=== PATIENT | female | born 2005 | race Two or more races ===

== ENCOUNTER 2024-12-16 08:07 | Emergency (ER) | payer MEDICAID, OTHER ==
[~2024-12-16] VITALS: Ht 160 cm; Wt 70.0 kg
--- NOTE | 2024-12-16 08:23 | ED.PDOC ---
History of Present Illness HPI Comments A 19YEAR OLD FEMALE PRESENTS TO THE ED WITH COMPLAINT OF MEDICAL CLEARANCE. PATIENT STATES THAT SHE IS CURRENTLY 17 WEEKS , . PATIENT HAS NOT HAD ANY CARE, BLOOD TEST AND US DONE SINCE FINDING OUT THAT SHE WAS . AT THIS TIME, SHE C/P PELVIC CRAMPS AND REQUESTS OB US. PATIENT STATES THAT [facility] AND THE STAFF THERE STATES THAT SHE NEEDED TO BE MEDICALLY CLEARED TO BE ACCEPTED. PATIENT DENIES FEVER, CHILLS, SHORTNESS OF BREATH, CHEST PAIN, ABDOMINAL PAIN, NAUSEA, VOMITING, HEADACHE, OR OTHER COMPLAINTS. NO OTHER SYMPTOMS OR MODIFYING FACTORS AT THIS TIME. PATIENT IS ALERT, ORIENTED X 4, AND HAS STEADY GAIT. Time Seen by MD: 08:11 Reviewed Notes: Nurses Notes, Medications, Allergies Allergies: Coded Allergies: NO KNOWN ALLERGIES (Unverified , 12/16/24) Home Meds Active Scripts Nitrofurantoin Monohydrate Mac (Macrobid) 100 Mg Cap, 100 MG PO BID, #14 CAP Prov:BRICE HEBERT 12/16/24 Information Source: Patient Mode of Arrival: Ambulatory Severity: Mild, Moderate Timing: Days Duration: Since onset, Days Prehospital treatment: None Medication Refill: For: Other ( STATE AND MEDICAL CLEARANCE. ) Past Medical History PAST MEDICAL HISTORY: Anxiety, Depression Surgical History: Denies all surgeries RENEWAL SPECIALIST History: Denies all RENEWAL SPECIALIST Hx Family History Family History: Reviewed,noncontributory to illness Social History Smoker: Non-Smoker Alcohol: Denies ETOH Use Drugs: Denies Drug Use Lives In: Home Constitutional: denies: chills, diaphoresis, fatigue, fever, malaise, sweats, weakness, others EENTM: denies: blurred vision, double vision, ear bleeding, ear discharge, ear drainage, ear pain, ear ringing, eye pain, eye redness, hearing loss, mouth davida n, mouth swelling, nasal discharge, nose bleeding, nose congestion, nose pain, photophobia, tearing, throat pain, throat swelling, voice changes, others Respiratory: denies: cough, hemoptysis, orthopnea, SOB at rest, shortness of breath, SOB with excertion, stridor, wheezing, others Cardiovascular: denies: chest pain, dizzy spells, diaphoresis, Dyspnea on exertion, edema, irregular heart beat, left arm pain, lightheadedness, palpitations, PND, syncope, others Gastrointestinal: denies: abdomen distended, abdominal pain, blood streaked bowels, constipated, diarrhea, dysphagia, difficulty swallowing, hematemesis, melena, nausea, poor appetite, poor fluid intake, rectal bleeding, rectal pain, vomiting, others Genitourinary: reports: pain (PELVIC ), ; denies: abnormal vagina bleeding, burning, dyspareunia, dysuria, flank pain, frequency, hematuria, incontinence, vagina discharge, urgency, others Neurological: denies: dizziness, fainting, headache, left sided numbness, left sided weakness, numbness, paresthesia, pre-existing deficit, right sided numbness, right sided weakness, seizure, speech problems, tingling, tremors, weakness, others Musculoskeletal: denies: back pain, gout, joint pain, joint swelling, muscle pain, muscle stiffness, neck pain, others Integumetry: denies: bruises, change in color, change in hair/nails, dryness, laceration, lesions, lumps, rash, wounds, others Allergic/Immunocompromised: denies: Difficulty Healing, Frequent Infections, Hives, Itching, others Hematologic/Lymphatic: denies: anemia, blood clots, easy bleeding, easy bruising, swollen glands, others Endocrine: denies: excessive hunger, excessive sweating, excessive thirst, excessive urination, flushing, intolerance to cold, intolerance to heat, unexplained weight gain, unexplained weight loss, others Psychiatric: denies: anxiety, bipolar disorder, depression, hopeless, panic di sorder, schizophrenia, sleepless, suicidal, others All Other Systems: Reviewed and Negative ( PER HPI) Physical Exam General Appearance: No Apparent Distress, Normal HEENT: Normal ENT Inspection, PERRL/EOMI, Pharynx Normal, TMs Normal Neck: Full Range of Motion, Non-Tender, Normal, Normal Inspection Respiratory: Chest Non-Tender, Lungs Clear, No Accessory Muscle Use, No Respiratory Distress, Normal Breath Sounds Cardiovascular: No Edema, No JVD, No Murmur, No Gallop, Normal Peripheral Puls es, Regular Rate/Rhythm Breast Exam: Deferred Gastrointestinal: No Organomegaly, Non Tender, No Pulsatile Mass, Normal Bowel Sounds, Soft Genitalia: Deferred Pelvic: Normal External Exam, Other (MILD TENDERNESS PELVIC, NO GUARDING AND REBOUND TENDERNESS, NO VAGINAL BLEEDING AND BLOOD CLOTS. ) Rectal: Deferred Extremities: No calf tenderness, Normal capillary refill, Normal inspection, Normal range of motion, Non-tender, No pedal edema Musculoskeletal : Apperance: Normal Neurologic: Alert, vice president underwriting II-XII nml as Tested, No Motor Deficits, Normal Affect, Normal Mood, No Sensory Deficits Cerebellar Function: Normal Reflexes: Normal Skin: Dry, Normal Color, Warm Peripheral Pulses: 2+ carotid (R), 2+ carotid (L) Lymphatic: No Adenopathy Was a procedure done? Was a procedure done?: No Differential Dx Considerations may include: STATE, UTI, MEDICAL CLEARANCE X-Ray, Labs, Meds, VS Vital Signs Date Time Temp Pulse Resp B/P (MAP) Pulse Ox O2 Delivery O2 Flow Rate FiO2 12/16/24 10:22 64 18 98 Room Air 12/16/24 10:22 98.1 64 18 124/75 (91) 98 98.1 12/16/24 08:11 97.9 100 16 139/86 (103) 97 97.9 Lab Test 12/16/24 08:17 12/16/24 08:16 Range/Units White Blood Count 7.3 4.4-10.8 10^3/uL Red Blood Count 4.42 4.0-5.20 10^6/uL Hemoglobin 12.4 12.2-16.2 g/dL Hematocrit 36.1 36.0-46.0 % Mean Corpuscular Volume 81.7 80.0-100.0 fL Mean Corpuscular Hemoglobin 28.0 28.0-32.0 pg Mean Corpuscular Hemoglobin Concent 34.3 32.0-36.0 g/dL Red Cell Distribution Width 16.8 H 11.8-14.3 % Platelet Count 266 140-450 10^3/uL Mean Platelet Volume 8.3 6.9-10.8 fL Neutrophils (%) (Auto) 68.2 37.0-80.0 % Lymphocytes (%) (Auto) 19.8 10.0-50.0 % Monocytes (%) (Auto) 10.9 0.0-12.0 % Eosinophils (%) (Auto) 0.6 0.0-7.0 % Basophils (%) (Auto) 0.5 0.0-2.0 % Neutrophils # (Auto) 4.9 1.6-8.6 10 ^3/uL Lymphocytes # (Auto) 1.4 0.4-5.4 10 ^3/uL Monocytes # (Auto) 0.8 0-1.3 10 ^3/uL Eosinophils # (Auto) 0 0-0.8 10 ^3/uL Basophils # (Auto) 0 0-0.2 10 ^3/uL Nucleated Red Blood Cells 0.0 % Sodium Level 138 136-145 mmol/L Potassium Level 3.3 L 3.5-5.1 mmol/L Chloride Level 107 98-107 mmol/L Carbon Dioxide Level 20 20-31 mmol/L Anion Gap 11 5-15 Blood Urea Nitrogen < 5 L 9-23 mg/dL Creatinine 0.54 L 0.550-1.02 mg/dL Glomerular Filtration Rate Calc 134 >90 mL/min BUN/Creatinine Ratio 9.3 L 10.0-20.0 Serum Glucose 89 74-106 mg/dL Calcium Level 9.8 8.7-10.4 mg/dL Beta HCG, Quantitative 8916.2 H 1.5-4.2 mIU/mL Urine Color Yellow Yellow Urine Clarity Cloudy H Clear Urine pH 6.0 5.0-9.0 Urine Specific [place] 1.019 1.001-1.035 Urine Protein Trace H Negative Urine Ketones 1+ H Negative Urine Blood Negative Negative /uL Urine Nitrite Negative Negative Urine Bilirubin Negative Negative Urine Urobilinogen Normal Negative mg/dL Urine Leukocyte Esterase 3+ Negative /uL Urine RBC 11 0 - 4 /hpf Urine Microscopic WBC 68 H 0-5 /HPF Urine Squamous Epithelial Cells Many <5 /hpf Urine Bacteria Mod H None Seen /hpf Urine Mucus Few None Seen Urine Sperm Present None Seen /hpf Urine Glucose Normal Normal mg/dL Urine Test Positive Negative PATIENT: JOSE MILES ACCT: [id number] UNIT: [id number] : 2005 LOC: ER ROOM / BED: / AGE / SEX: 19 / F ADM STATUS: REG ER SERVICE [id number] ORDERING PHYSICIAN: BRICE HEBERT PROCEDURE(s): OBUS - OB ULTRASOUND COMP GTR 14 WKS REASON: PELVIC PAIN, 17 WEEKS ORDER NUMBER(s): [id number], ACCESSION NUMBER(s): [id number] LIMITED OB ULTRASOUND > 14 WKS: HISTORY: PELVIC PAIN, 17 WEEKS TECHNIQUE: Multiple real-time grayscale images of the gravid uterus with duplex Doppler color flow and M-mode spectral analysis. TRANSDUCER: Transabdominal COMPARISON: None FINDINGS: IUP single live fetus at 18 weeks and 1 day based on composite averages of the BPD, head circumference, abdominal circumference and femur length Estimated weight 222 grams heart rate 156 beats per minute CHARLENE is subjectively within normal limits. Deepest pocket measures 4.3 cm Cervix is closed measures 3.2 cm Transverse left Presentation Grade 1, anterior Placenta without previa or abruption. IMPRESSION: IUP single live fetus at 18 weeks and 1 day AUA corresponding to an RODERICK of 05/18/2025 ATED BY: SPIKE DUNHAM MD DICTATED DATE/TIME: 12/16/24 100 SIGNED BY: SPIKE DUNHAM MD SIGNED DATE/TIME: 12/16/24 1001 X-Ray, Labs, Meds, VS Comment EXTERNAL MEDICAL RECORDS: NONE INDEPENDENT HISTORIANS: NONE SOCIAL DETERMINANTS OF HEALTH: NONE LABS ORDERED: CBC, BMP, BETA HCG, URINALYSIS, URINE REVIEWED AND INTERPRETED RESULTS: NONE IMAGING ORDERED: OB ULTRASOUND TREATMENTS ORDERED: NONE PATIENT'S CASE AND RESULTS HAVE BEEN DISCUSSED WITH MD SPRINGER AND THEY AGREE WITH MY PLAN OF CARE. RX: MACROBID 100MG BID I HAVE DISCUSSED IMAGING AND LAB RESULTS WITH THE PATIENT AND HAVE INSTRUCTED THE PATIENT TO FOLLOW UP WITH THEIR PCP IN 1-2 DAYS. THE PATIENT FULLY UNDERSTANDS THEIR RESULTS AND ARE AWARE THEY NEED TO FOLLOW UP WITH THEIR PCP FOR FURTHER EVALUATION IF THEIR SYMPTOMS PERSIST. DUE TO PATIENT BEING HOMELESS, PATIENT IS AWAITING GEOMATICS PROFESSOR CONSULTATION. PATIENT IS MEDICALLY CLEARED FROM A CLINICAL PERSPECTIVE. Time of 1ST Reevaluation: 08:41 Reevaluation 1ST: Improved Time of 2ND Reevaluation: 10:34 Reevaluation 2ND: Improved Patient Education/Counseling: Diagnosis, Treatment Family Education/Counseling: Diagnosis, Treatment SEPSIS Sepsis Screen Physician Orders Ob Ultrasound Comp Gtr 14 Wks (12/16/24 08:37) * Territory Business Manager Consult (12/16/24 ) Vital Signs Date Time Temp Pulse Resp B/P (MAP) Pulse Ox O2 Delivery O2 Flow Rate FiO2 12/16/24 10:22 64 18 98 Room Air 12/16/24 10:22 98.1 64 18 124/75 (91) 98 98.1 12/16/24 08:11 97.9 100 16 139/86 (103) 97 97.9 Laboratory Tests Test 12/16/24 08:17 White Blood Count 7.3 10^3/uL (4.4-10.8) Departure 1 Departure Time of Disposition: 10:21 Impression: Primary Impression: Second trimester Additional Impression: UTI (urinary tract infection) Qualified Codes: N30.00 - Acute cystitis without hematuria Disposition: HOME / SELF CARE / HOMELESS Condition: Stable Additional Instructions: F/U MILLING GENERAL SUPERINTENDENT IN 2 DAYS RECHECK. IF CONDITION BECOME WORSE, RETURN TO ED KRISTINA. e-Prescriptions Nitrofurantoin Monohydrate Mac (Macrobid) 100 Mg Cap 100 MG PO BID, #14 CAP Prov: BRICE HEBERT 12/16/24 Discharged With: Self Critical Care Note Critical Care Time?: No Stability Stability form required: No Heart Score Heart Score: Heart Score Response (Comments) Value History N/A 0 EKG N/A 0 Age N/A 0 Risk Factors N/A 0 Troponin N/A 0 Total 0 I personally scribed for BRICE HEBERT ([email or web address]) on 12/16/24 at 08:23. Electronically submitted by Herrera Barrios ([email or web address]). I personally scribed for BRICE HEBERT ([email or web address]) on 12/16/24 at 10:07. Electronically submitted by Herrera Barrios ([email or web address]). I personally scribed for BRICE HEBERT ([email or web address]) on 12/16/24 at 10:08. Electronically submitted by Herrera Barrios ([email or web address]). BRICE HEBERT Dec 16, 2024 08:23
[2024-12-16 08:37] LABS: Hematocrit 36.1 % (36.0-46.0); Hemoglobin 12.4 g/dL (12.2-16.2); Mean Corpuscular Hemoglobin 28.0 pg (28.0-32.0); Mean Corpuscular Volume 81.7 fL (80.0-100.0); Nucleated Red Blood Cells % 0.0 %
[2024-12-16 08:41] LABS: Anion Gap 11 (5-15); Sodium 138 mmol/L (136-145)
[2024-12-16 08:42] LABS: Calcium 9.8 mg/dL (8.7-10.4)
[2024-12-16 08:47] LABS: BUN/Creatinine Ratio 9.3 (10.0-20.0); Blood Urea Nitrogen < 5 mg/dL (9-23); Carbon Dioxide 20 mmol/L (20-31); Chloride 107 mmol/L (98-107); Glucose 89 mg/dL (74-106); Potassium 3.3 mmol/L (3.5-5.1)
[2024-12-16 09:02] LABS: Urine Protein, UAD TRACE (Negative)
--- NOTE | 2024-12-16 10:03 | DVH ---
LIMITED OB ULTRASOUND > 14 WKS: HISTORY: PELVIC PAIN, 17 WEEKS TECHNIQUE: Multiple real-time grayscale images of the gravid uterus with duplex Doppler color flow an d M-mode spectral analysis. TRANSDUCER: Transabdominal COMPARISON: None FINDINGS: IUP single live fetus at 18 weeks and 1 day based on composite averages of the BPD, head circumferenc e, abdominal circumference and femur length Estimated weight 222 grams heart rate 156 beats per minute CHARLENE is subjectively within normal limits. Deepest pocket measures 4.3 cm Cervix is closed measures 3.2 cm Transverse left Presentation Grade 1, anterior Placenta without previa or abruption. IMPRESSION: IUP single live fetus at 18 weeks and 1 day AUA corresponding to an RODERICK of 05/18/2025
[2024-12-16 10:22] VITALS: BP 124/75; PULSE 64; RESP 18; TEMP 98.1; O2SAT 98
[2024-12-16] MEDS ORDERED: NITR-87 PO (10:26)
== END 2024-12-16 16:21 | disposition home or self-care (01) ==
LOC: ER 08:07
DX: O23.42 Unspecified infection of urinary tract in pregnancy, second trimester (principal); R10.2 Pelvic and perineal pain; F41.9 Anxiety disorder, unspecified; F32.A Depression, unspecified; Z79.899 Other long term (current) drug therapy; Z3A.18 18 weeks gestation of pregnancy
CPT/HCPCS: 36415; 76805; 80048; 81001; 81025; 84702; 85025